=== PATIENT | female | born 1990 | race Caucasian/White ===

== ENCOUNTER 2018-11-04 17:46 | Inpatient (IN) | payer OTHER, BC ==
[2018-11-04] MEDS ORDERED: Buffered Lidocaine 1% SYRIN* 1 ML/SYRINGE INTRADERM ONE (19:41)
[2018-11-04] MEDS ORDERED: Lactated Ringers 1000 ML Bag* 1,000 ML IV ONE (19:41)
--- NOTE | 2018-11-04 19:51 | HP ---
General Information - Reason for Visit Pt reports irregular ctx overnight and more regular ctx starting around 2:30pm. Pt reports + bloody show, - LOF, + FM. Pt coping well. - General Information Maternal Age: 27 Grav: 1 Para: 0 SAB: 0 IEA: 0 Estimated Due Date: 11/04/18 Determined By: LMP Maternal Blood Type and Rh: A Positive - Results this Serology/RPR Result: Non-Reactive Rubella Result: Immune HBsAg Result: Negative HIV Result: Negative GBS Culture Result: Negative Past Medical History Pertinent Past Medical History: See Records - depression Pertinent Past Surgical History: None Pertinent Family History: See Records - m aunt: breast cancer; PGF: stroke, DM; PGM: aneurysm - Antepartal Records Antepartal Records: Reviewed, Complicated by: - low lying placenta ( resolved) Review of Systems Constitutional: Uncomfortable CV Complaint: No Respiratory: Shortness of Breath: No Gastrointestinal: No Nausea/Vomiting, Normal Bowel Movement Genitourinary: No Dysuria, No Bleeding, No Leaking Fluid Musculoskeletal: No Epigastric Pain, Contractions Neurological: No Headache, No Visual Changes Movement: Normal Exam Allergies/Adverse Reactions: Allergies benzoyl peroxide Allergy (Verified 11/04/18 18:20) Facial Redness/Flushing,swelling cefaclor [From Ceclor] Allergy (Verified 11/04/18 18:19) Hives T:97.7, P:72, R:18, BP:127/89, O2:100 - Measurements Height: 5 ft 6 in Weight: 156 lb Weight in lbs: [phone] Body Mass Index (BMI): 25.2 Pre- Weight: 120 lb Weight Gained This : 36 lbs and 0 ozs - Exam Breast: Breast Exam Deferred CVA: No CVA Tenderness Extremities: No Edema Heart: Normal Rhythm/Heart Sounds HEENT: No Significant Findings Lungs: Clear Bilaterally Rectal: Rectal Exam Deferred Reflexes: DTR 2+ Thyroid: No Thyromegaly - Abdominal Exam Abdomen Exam: Fundal Height Consistent with Dates - Ultrasound/Biophysical Profile Ultrasound Status: Not Done Targeted Exam Findings See L&D Outpatient Visit Provider Note for Findings: N/A Estimated Weight: 7lbs 10oz Cervical Exam: 4cm, 5cm Effacement: 90% Station: -1, 0 Presenting Part: Vertex Membrane Status: Intact Bleeding/Discharge: Bloody Show EFM Findings - External Monitor Findings Baseline Heart Rate: 135 External Monitor Findings: Accelerations Present, No Pattern of Variable or Late Decelerations, Variability Moderate, Baseline Stable Contractions: Regular, Mild, Moderate, 45-90 Seconds Contraction Frequency: 3-4 Assessment/Plan - Assessment 27 y.o. , 40wks EGA, early labor, Cat I NST - Plan Plan: Admit - Anticipate Vaginal Delivery - Date/Time of Admission Date of Admission: 11/04/18 Time of Admission: 19:40
[2018-11-04] MEDS ORDERED: Lactated Ringers 1000 ML Bag* 1,000 ML IV SCH (20:00)
[2018-11-04 21:27] LABS: Urine Benzodiazepine Screen None Detected (None Detect); Urine Opiates Screen None Detected (None Detect)
[2018-11-05] MEDS ORDERED: Promethazine INJ(RESTRICTED)* 25 MG/ML 1 ML VIAL IV PRN (01:15)
[2018-11-05] MEDS ORDERED: Nalbuphine* 10 MG/ML 1 ML VIAL IV PRN (01:15)
--- NOTE | 2018-11-05 01:20 | PN ---
Progress Note - Progress Note Date of Service: 11/05/18 SOAP: Subjective: Pt reports contractions increasing in intensity and wishes to discuss pain management options. Pt's desires IV meds and reevaluation in a few hours, pt considering epidural Objective: FHR: 140bpm, BP:126/71, P:94, cervix:6/90/-1-0 Assessment: 27 y.o. , 40w1d EGA, active labor Plan: 1) Start IV, bolus and CBC and Type and Screen 2) IV nubain and phenergan, reviewed risks/benefits 3) Pt will try to rest and call for epidural if inadequate pain control with nubain and phenergan 4) Reevaluate in 1-2 hrs or sooner PRN
[2018-11-05 01:34] LABS: ABS Basophils 0.1 10^3/ul (0-0.2); ABS Lymphocytes 1.3 10^3/ul (1.0-4.8); ABS Monocytes 0.6 10^3/ul (0-0.8); ABS Neutrophils 11.8 10^3/ul (1.5-7.7); Hematocrit 37 % (35-47); Lymphocyte % 9.6 %; Mean Corpuscular HGB Conc 35 g/dL (31-36); Mean Corpuscular Hemoglobin 33 pg (27-31); Mean Corpuscular Volume 94 fL (80-97); Mean Platelet Volume 9.6 fL (7.4-10.4); Platelet Count 134 10^3/uL (150-450); Red Blood Count 3.97 10^6 /uL (3.70-4.87); Red Cell Distribution Width 13 % (10-15); White Blood Count 13.8 10^3/uL (3.5-10.8)
--- NOTE | 2018-11-05 07:49 | PN ---
Progress Note - Progress Note Date of Service: 11/05/18 SOAP: Subjective: Pt reports ctx have spaced out and are less pain full. Pt slept well after nubain and phenergan. Objective: FHR: 145 bpm, + accels, - decels, moderate variability, ctx q 6-8 min, BP: 128/ 60, P:85, R:16, T:99.3 cervix:7.5/90/-1, AROM- thin meconium Assessment: 27 y.o. 40w1d EGA, labor, Cat I NST Plan: 1) Position changes 2) AROM 3) Ambulation 4) Reevaluate in 2 hrs or sooner PRN
[2018-11-05] MEDS ORDERED: OBEPIDURAL* 250 ML EPIDURAL ONE (08:36)
[2018-11-05] MEDS ORDERED: Phenylephrine 40 MCG/ML SYRINGE IV PUSH PRN ×2 (09:46)
[2018-11-05] MEDS ORDERED: Famotidine TAB* 20 MG PO PRN (09:46)
[2018-11-05] MEDS ORDERED: Sodium Citrate/Citric Acid* 15 ML UDC PO PRN (09:46)
[2018-11-05] MEDS ORDERED: Lactated Ringers 1000 ML Bag* 1,000 ML IV ONE (09:46)
[2018-11-05] MEDS ORDERED: OBEPIDURAL* 250 ML EPIDURAL SCH (10:00)
[2018-11-05] MEDS ORDERED: Lactated Ringers 1000 ML Bag* 1,000 ML IV SCH ×2 (10:00→15:00)
[2018-11-05] MEDS ORDERED: Oxytocin in LR* 20 UNITS/1,000 ML BAG IVPB ONE (12:52)
[2018-11-05] MEDS ORDERED: Lidocaine 2% VISCOUS* 15 ML UDC ONE (14:30)
[2018-11-05] MEDS ORDERED: Witch Hazel PAD* JAR ONE (14:55)
[2018-11-05] MEDS ORDERED: Dibucaine 1% 28.35 GM TUBE ONE (14:55)
[2018-11-05] MEDS ORDERED: Glycerin ADULT SUPP PR PRN (14:59)
[2018-11-05] MEDS ORDERED: Witch Hazel PAD* JAR TOPICAL PRN (14:59)
[2018-11-05] MEDS ORDERED: Misoprostol TAB* 200 MCG PR ONE (14:59)
[2018-11-05] MEDS ORDERED: Oxytocin in LR* 20 UNITS/1,000 ML BAG IVPB SCH (15:00)
[2018-11-05] MEDS ORDERED: ceFAZolin 1 GM ADVAN(*) 1 GM in NS 0.9% 50 ML* 50 ML IVPB ONE (15:03)
[2018-11-05] MEDS ORDERED: Lidocaine 2% VISCOUS* 15 ML UDC PO ONE (15:04)
--- NOTE | 2018-11-05 15:06 | PROCNOTE ---
[facility] OB: Delivery Note - Delivery A Date of : 11/05/18 Time of : 14:37 Sex: Female Score 1 Minute: 9 Score 5 Minutes: 9 Gestational Age in Weeks and Days at Delivery: 40 Weeks and 1 Days Delivery Method: Spontaneous Vaginal Labor: Spontaneous Amniotic Fluid: Meconium Estimated Blood Loss: 500 Anesthesia/Analgesia: IM/IV, CEI for Labor, Nitrous-Labor Delivered By: Holly Lara - Nursery Level of Nursery: Regular/Bedside - Perineum Perineal Injury: None/Intact Perineal Repair: None - Events Delivery Events of Note: Protracted/Long Labor, Pitocin Only After Delivery, Manual Removal of Placenta
[2018-11-05] MEDS ORDERED: Clindamycin 600 MG IVPREMIX(* 600 MG/50 ML SDV IV ONE (15:30)
[2018-11-05] MEDS: Dibucaine 1% 28.35 GM TUBE PR PRN (15:30)
[2018-11-05] MEDS: Ibuprofen TAB* 600 MG PO PRN (17:39)
[2018-11-05] MEDS: Docusate CAP* 100 MG PO SCH (22:26)
[2018-11-06] MEDS: Ibuprofen TAB* 600 MG PO PRN ×3 (01:00→16:11)
[2018-11-06] MEDS: Docusate CAP* 100 MG PO SCH ×3 (08:40→19:58)
[2018-11-06 09:06] LABS: Hematocrit 28 % (35-47); Hemoglobin 9.8 g/dL (12.0-16.0); Mean Corpuscular HGB Conc 35 g/dL (31-36); Mean Corpuscular Hemoglobin 34 pg (27-31); Mean Corpuscular Volume 95 fL (80-97); Red Blood Count 2.93 10^6 /uL (3.70-4.87); Red Cell Distribution Width 13 % (10-15)
[2018-11-06] MEDS: Ferrous Gluconate TAB* 324 MG TAB PO SCH ×2 (09:27→19:57)
[2018-11-06 09:33] LABS: ABS Lymphocytes 1.6 10^3/ul (1.0-4.8); ABS Monocytes 0.6 10^3/ul (0-0.8); ABS Neutrophils 7.7 10^3/ul (1.5-7.7); Eosinophil % 0.3 %; Lymphocyte % 16.2 %; Platelet Count 95 10^3/uL (150-450)
--- NOTE | 2018-11-06 09:51 | PTEDU ---
Patient Name: NELI VILLA NELI VILLA selected video: BBOB: Nurturing Your Gorgeous &Growing Baby by to view on 0 11/06/2018 at 9:50:06 AM [id number]
--- NOTE | 2018-11-06 10:20 | PTEDU ---
Patient Name: NELI VILLA NELI VILLA selected video: Follow Me Mum: The Kwon to Successful to view on 11/06/2018 at 10:19:19 AM from [id number]
[2018-11-06] MEDS: Acetaminophen TAB* 325 MG PO PRN (19:57)
--- NOTE | 2018-11-06 22:20 | PTEDU ---
Patient Name: NELI VILLA NELI VILLA selected video: BBOB: Bonding Through Massage to view on 11/06/2018 at 10:19:39 PM [id number]
[2018-11-07] MEDS: Ibuprofen TAB* 600 MG PO PRN ×2 (03:33→09:35)
[2018-11-07] MEDS: Simethicone TAB* 80 MG TAB.CHEW PO SCH (07:19)
[2018-11-07 07:30] VITALS: BP 124/82
[2018-11-07] MEDS: Ferrous Gluconate TAB* 324 MG TAB PO SCH (08:37)
[2018-11-07] MEDS: Docusate CAP* 100 MG PO SCH (08:37)
[2018-11-07] MEDS: Dibucaine 1% 28.35 GM TUBE PR PRN (08:38)
[2018-11-07] MEDS: Acetaminophen TAB* 325 MG PO PRN (09:35)
== END 2018-11-07 12:45 | disposition home or self-care (01) | DRG 807 ==
LOC: MCHOBOUT 17:46 → MCHOB 19:40
PROVIDERS: ADMIT Midwife; ATTEND Midwife
PROC: 10E0XZZ Delivery of Products of Conception, External Approach (ICD-10-PCS; principal; 2018-11-05)
PROC: 10907ZC Drainage of Amniotic Fluid, Therapeutic from Products of Conception, Via Natural or Artificial Opening (ICD-10-PCS; 2018-11-05)
DX: O48.0 Post-term pregnancy (principal); Z37.0 Single live birth; O77.0 Labor and delivery complicated by meconium in amniotic fluid; O99.344 Other mental disorders complicating childbirth; F32.9 Major depressive disorder, single episode, unspecified; O63.0 Prolonged first stage (of labor); O90.81 Anemia of the puerperium; D64.9 Anemia, unspecified; Z3A.40 40 weeks gestation of pregnancy
CPT/HCPCS: 36415; 80307; 85025; 85060; 86850; 86900; 86901; A9270-GY; J2300; J2550